=== PATIENT | female | born 2000 | race Caucasian/White ===

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

== ENCOUNTER 2023-09-16 20:34 | Emergency (ER) | payer BC, SELFPAY ==
[2023-09-16 20:35] VITALS: BP 117/81; PULSE 110; RESP 18; TEMP 36.7; O2SAT 97; BMI 24.3
--- NOTE | 2023-09-16 20:46 | ED.VIS.LOWEX ---
HPI History of Present Illness Chief Complaint: Lower Extremity Injury Detail of Chief Complaint: Injury to right thigh yesterday and today Informant: patient Occured/Mechanism Mechanism/Context: Yes injury Comment: Patient was running a obstacle course yesterday when she injured her right thigh. 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 Today she was playing softball. She injured her right thigh again. She is now having difficulty ambulating. She is localizing the pain to the mid anterior right thigh. She denies prior injury. She denies contraindication to NSAIDs. She is not from the area. She states college ends within a week and she is returning to home, [facility]. Patient denies paresthesia, anesthesia or motor weakness. Patient also complains now of right lower back pain. She has no other symptoms or complaints. Prior similar symptoms: No Recent Illness/Hospitalization: No PFSH PFSH Medical History Anxiety Asthma Depression Migraine Home Medications albuterol sulfate 90 mcg/actuation breath activated powder inhaler 2 inh inhalation Q4H PRN SOB 03/13/21 [History Last Taken Unknown] fluticasone 100 mcg-salmeterol 50 mcg/dose blistr powdr for inhalation (Advair Diskus) 1 inh inhalation DAILY 03/13/21 [History Last Taken Unknown] hydroxyzine pamoate 25 mg capsule (Vistaril) 25 mg PO DAILY 03/13/21 [History Last Taken Unknown] rimegepant 75 mg disintegrating tablet (Nurtec ODT) 75 mg PO DAILY PRN MIGRAINES 03/13/21 [History Last Taken Unknown] verapamil 120 mg tablet 120 mg PO DAILY 03/13/21 [History Last Taken Unknown] norethindrone 1 mg-ethinyl estradiol 20 mcg (24)-iron 75 mg (4) tablet (Blisovi 24 Fe) 1 tab PO DAILY 08/21/21 [History Last Taken Unknown] hydrocodone-acetaminophen 5-325mg 5mg-325mg 1 tab PO Q6H PRN PRN Pain 3 days #10 TABLETS 09/16/23 [Rx Last Taken Unknown] Allergy/AdvReac Type Severity Reaction Status Date / Time No Known Allergies Allergy Verified 09/16/23 20:39 Surgical History [place] teeth extracted Social History (Updated 09/16/23 @ 20:[address] Wan Shay MD) household members: family Smoking Status: Never smoker ROS ROS ED Constitutional Constitutional ED: Denies chills, fever(s) or subjective Musculoskeletal Musculoskeletal: Reports other Details: Right thigh pain ; Denies arthralgias, back pain, myalgias or neck pain Neurologic Neurologic: Denies paresthesias or weakness Hematologic/Lymphatic Hematologic/Lymphatic: Denies easy bleeding or easy bruising EXAM Physical Exam Const Vital Signs: 09/16/23 20:35 Temperature 98.0 F Temperature Source Temporal Pulse Rate 110 H Respiratory Rate 18 Blood Pressure 117/81 H Blood Pressure Mean 93 Pulse Ox 97 Oxygen Delivery Method Room Air Positive well nourished and well developed Constitutional Narrative: Patient appears uncomfortable walking from triage to the examination room General Appearance ED: well developed; Negative for NAD HEENT normocephalic and atraumatic Eyes PERRL Eyes Narrative: Extract muscle intact. Resp normal respiratory effort Cardio regular rate and regular rhythm Back/Spine no CVA tenderness Extremity Extremity Narrative: Having the patient extend at the knee results and a bulge mid anterior right thigh. She is able to extend 180 degrees. Palpation of the quadricep tendon and patella tendon elicits no pain and there is no obvious defect. Patient is able to ABduct and adduct against resistance. Patient has pain with initiation of gait. General Extremety ED: Yes weight-bearing difficulty General Extremity: weight-bearing difficulty Neuro oriented x3, CN's II-XII intact bilaterally and moves all extremities Sensorium / Orientation: alert Psych mental status grossly normal Skin no wounds Lesions: no lesions Rashes: no rashes MDM MDM MDM Narrative Medical decision making narrative: Differential diagnosis is hematoma, quadricep tear and muscle strain. Patient has no contraindication NSAIDs. She received dose of NSAIDs in the department. She also was given crutches. Patient was told that she is nonweightbearing and is apply ice. 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 She was informed what this means and the importance of not weightbearing. Imaging is not indicated since this is not a abnormality of the femur but the muscle. Treatment and Re-Evaluation Narrative: NSAIDs, ice crutches Discharge Plan Triage Chief Complaint: Lower Extremity Injury ED Provider: Wan Shay Dx/Rx/DC Orders Clinical Impression: Low back strain, Rupture of right quadriceps muscle, Difficulty walking Instructions: ED Muscle Strain, Extremity Prescriptions: New hydrocodone-acetaminophen [hydrocodone-acetaminophen] 5-325 mg tablet 1 tab PO Q6H PRN PRN (Reason: Pain) 3 Days Qty: 10 0RF No Action hydroxyzine pamoate [Vistaril] 25 mg Capsule 25 mg PO DAILY albuterol sulfate 90 mcg/actuation Aerosol Powdr Breath Activated 2 inh INHALATION Q4H PRN (Reason: SOB) verapamil 120 mg Tablet 120 mg PO DAILY fluticasone propion-salmeterol [Advair Diskus] 100-50 mcg/dose Blister With Device 1 inh INHALATION DAILY Nurtec ODT 75 mg Tablet,Disintegrating 75 mg PO DAILY PRN (Reason: MIGRAINES) norethindrone-e.estradiol-iron [Blisovi 24 Fe] 1 mg-20 mcg (24)/75 mg (4) tablet 1 tab PO DAILY Patient Comments: TAKE 1 TABLET BY MOUTH EVERY DAY Stand Alone Forms: ED Work / School Excuse Primary Care Provider: Care Physician,No Primary Referrals: Care Physician,No Primary [Primary Care Provider] - Doctor,Your [Non-Staff] - 1-2 Weeks Activity Restrictions/Additional Instructions: 1. Apply ice to your right thigh 6-10 times a day 2. You may take either 3 ibuprofen tablets every 8 hours or 2 Aleve tablets every 12 hours for the next 5 to 7 days 3. You were prescribed a more potent pain medicine as needed especially the next several days. 4. No weightbearing until you are pain has decreased significantly. Then as tolerated Disposition Disposition: Home, Self Care
[2023-09-16] MEDS: Ibuprofen 600 MG Tablet PO (21:01)
[2023-09-16 21:02] VITALS: BP 115/74; PULSE 99; RESP 16; TEMP 36.2; O2SAT 99
== END 2023-09-16 21:13 | disposition home or self-care (01) ==
PROVIDERS: Emergency Provider Emergency Medicine; Visit Provider Emergency Medicine
DX: S76.111A Strain of right quadriceps muscle, fascia and tendon, initial encounter (principal); S39.012A Strain of muscle, fascia and tendon of lower back, initial encounter; R26.2 Difficulty in walking, not elsewhere classified; Y93.64 Activity, baseball; J45.909 Unspecified asthma, uncomplicated; X58.XXXA Exposure to other specified factors, initial encounter
CPT/HCPCS: 99284

== ENCOUNTER → 2024-03-11 | Outpatient (CLI) | payer BC, SELFPAY ==
--- OUTSIDE RECORDS SUMMARY | 2024-03-11 11:58 | XMS RPT_ITS | CCD ---
Author Organization [facility] Inform ion Partnership [facility] Care Team Providers Care Fig Caprifier Name Role Phone Unavailable Primary Care Provider Unavailabl e Medications Completed/Discontinued Medications Medication Drug Class(es) Dates Sig (Normalized) Sig (Original) [id number] 200 actuat albuterol 0.09 mg/actuat metered dose inhaler (2 sources) beta2-Adrenergic Agonist take 1-2 puff(s) by inhalation every six hours as needed albuterol HFA (PROVENTIL HFA, VENTOLIN HFA) 90 mcg/actuation inhaler Inhale 1-2 Puffs as instructed every 6 hours as needed. 0 Active Comment on above: Inhale 1-2 Puffs as instructed every 6 hours as needed. 24 hr amphetamine aspartate 5 mg / amphetamine sulfate 5 mg / dextroamphetamine saccharate 5 mg / dextroamphetamine sulfate 5 mg extended release oral capsule (2 sources) Central Nervous System Stimulant Start: 06-27-2023 take 1 capsule by mouth once daily in the morning amphetamine-dextr oamphetamine XR (ADDERALL XR) 20 mg capsule 1 CAP BY MOUTH EVERY MORNING DIRECTED 0 06/27/2023 Active Comment on above: 1 CAP BY MOUTH EVERY MORNING DIRECTED esomeprazole 40 mg delayed release oral capsule (2 sources) Proton Pump Inhibitor Start: 04-22-2023 take 1 capsule by mouth once esomeprazole (NEXIUM) 40 mg capsule Take 1 capsule by mouth every afternoon. 0 04/22/2023 Active Comment on above: Take 1 capsule by mo uth every afternoon. Ethinyl Estradiol / Ferrous fumarate / Norethindrone (2 sources) Estrogen Start: 05-22-2023 take 1 tablet by mouth once daily BLISOVI 24 FE 1 mg-20 mcg (24)/75 mg (4) TAKE 1 TABLET BY MOUTH EVERY DAY *MUST MAKE APPOINTMENT FOR MORE REFILLS 0 05/22/2023 Active Comment on above: TAKE 1 TABLET BY MANUEL TH EVERY DAY *MUST MAKE APPOINTMENT FOR MORE REFILLS famotidine 40 mg oral tablet (2 sources) Histamine-2 Receptor Antagonist Start: 07-08-2023 famotidine (PEPCID) 40 mg tablet hydrOXYzine pamoate 25 mg oral capsule (2 sources) Antihistamine take 1 capsule by mouth every eight hours as needed hydrOXYzine pamoate (VISTARIL) 25 mg capsule Take 25 mg by mouth three times a day as needed. 0 Active Comment on above: Take 25 mg by mouth three times a day as needed. verapamil hydrochloride 120 mg extended release oral tablet (2 sources) Calcium Channel Annetta Start: 05-10-2023 take 1 tablet by mouth once verapamil SR (CALAN SR) 120 mg CR tablet Take 1 tablet by mouth every afternoon. 0 05/10/2023 Active Comment on above: Take 1 tablet by manuel th every afternoon. Problems Problem Classification Problem Date Documented Da te Episodic/Chronic Influenza (1 source) Influenza due to Influenza B virus; Translations: [Influenza due to other identified influenza virus with other respiratory manifestations] 07-11-2023 Episodic Other upper respiratory infections (1 source) Acute upper respiratory infection; Translations: [Acute upper respiratory infection, unspecified] 07-10-2023 Episodic Results Test Name Value Interpretation Reference Range Facil ity CBC W Auto Differential pane l (Bld)on 02-14-2024 Basophils (Bld) [#/Vol] 0.05 10*3/uL Normal <0.11 [facility] Comment on above: Order Comment: Digna herrera Type: BLOOD SPECIMEN Ordering Facility: [facility] Address: ATTN: [place] [address] Performed By: #### 5 7021-8, 45377 #### [facility] CLIA [id number] [address] [place], [place] [address] [address] [place] Basophils/100 WBC (Bld) 0.9 % Normal [facility] Comment on above: Order Comment: Digna herrera Type: BLOOD SPECIMEN Ordering Facility: [facility] Address: ATTN: [place] [address] Performed By: #### 5 7021-8, 4537-7 #### [facility] CLIA [id number] [address] [place] [address] [place] Differential cell count method Nom (Bld) Auto Normal [facility] Comment on above: Order Comment: Speci men Type: BLOOD SPECIMEN Ordering Facility: [facility] Address: ATTN: [place] [address] Performed By: #### 5 7021-8, 4537-7 #### [facility] CLIA [id number] [address] [place] [address] [place] Eosinophils (Bld) [#/Vol] 0.11 10*3/uL Normal <0.46 [facility] Comment on above: Order Comment: Speci men Type: BLOOD SPECIMEN Ordering Facility: [facility] Address: ATTN: [place] [address] Performed By: #### 5 7021-8, 4537-7 #### [facility] CLIA [id number] [address] [place] [address] [place] Eosinophils/100 WBC (Bld) 1.9 % Normal [facility] Comment on above: Order Comment: Speci men Type: BLOOD SPECIMEN Ordering Facility: [facility] Address: ATTN: [address] [place] [id number] Performed By: #### 5 7021-8, 4537-7 #### [facility] CLIA [id number] [address] [place] [address] [place] Erythrocyte distribution width (RBC) [Ratio] 13.2 % Normal 11.5-15.0 [facility] Comment on above: Order Comment: Speci men Type: BLOOD SPECIMEN Ordering Facility: [facility] Address: ATTN: [place] [address] Performed By: #### 5 7021-8, 4537-7 #### [facility] CLIA [id number] [address] [place] [address] [place] Hematocrit (Bld) [Volume fraction] 38.8 % Normal 36.0-46.0 [facility] Comment on above: Order Comment: Speci men Type: BLOOD SPECIMEN Ordering Facility: [facility] Address: ATTN: [place] [address] Performed By: #### 5 7021-8, 7-7 #### [facility] CLIA [id number] [address] [place] [address] [place] Hemoglobin (Bld) [Mass/Vol] 12.5 g/dL Normal 11.5-15.5 [facility] Comment on above: Order Comment: Speci men Type: BLOOD SPECIMEN Ordering Facility: [facility] Address: ATTN: [place] [address] Performed By: #### 5 7021-8, 4536-7 #### [facility] CLIA [id number] [address] [place] [address] [place] Immature granulocytes (Bld) [#/Vol] 10*3/uL Normal <0.10 [facility] Comment on above: Order Comment: Speci men Type: BLOOD SPECIMEN Ordering Facility: [facility] Address: ATTN: [place] [address] Performed By: #### 5 7021-8, 4537-7 #### [facility] CLIA [id number] [address] [place] [address] [place] Immature granulocytes/100 WBC (Bld) 0.2 % Normal [facility] Comment on above: Order Comment: Speci men Type: BLOOD SPECIMEN Ordering Facility: [facility] Address: ATTN: [place] [address] Performed By: #### 5 7021-8, 7-7 #### [facility] CLIA [id number] [address] [place] [address] [place] Lymphocytes (Bld) [#/Vol] 1.80 10*3/uL Normal 1.00-4.00 [facility] Comment on above: Order Comment: Speci men Type: BLOOD SPECIMEN Ordering Facility: [facility] Address: ATTN: [place] [address] Performed By: #### 5 7021-8, 4537-7 #### [facility] CLIA [id number] [address] [place] [address] [place] Lymphocytes/100 WBC (Bld) 31.8 % Normal [facility] Comment on above: Order Comment: Speci men Type: BLOOD SPECIMEN Ordering Facility: [facility] Address: ATTN: [place] [address] Performed By: #### 5 7021-8, 4537-7 #### [facility] CLIA [id number] [address] [place] [address] [place] MCH (RBC) [Entitic mass] 30.8 pg Normal 26.0-34.0 [facility] Comment on above: Order Comment: Speci men Type: BLOOD SPECIMEN Ordering Facility: [facility] Address: ATTN: [place] [address] Performed By: #### 5 7021-8, 4537-7 #### [facility] CLIA [id number] [address] [place] [address] [place] MCHC (RBC) [Mass/Vol] 32.2 g/dL Normal 30.5-36.0 [facility] Comment on above: Order Comment: Speci men Type: BLOOD SPECIMEN Ordering Facility: [facility] Address: ATTN: [place] [address] Performed By: #### 5 7021-8, 4537-7 #### [facility] CLIA [id number] [address] [place] [address] [place] MCV (RBC) [Entitic vol] 95.6 fL Normal 80.0-100.0 [facility] Comment on above: Order Comment: Speci men Type: BLOOD SPECIMEN Ordering Facility: [facility] Address: ATTN: [place] [address] Performed By: #### 5 7021-8, 7-7 #### [facility] CLIA [id number] [address] [place] [address] [place] Monocytes (Bld) [#/Vol] 0.42 10*3/uL Normal <0.87 [facility] Comment on above: Order Comment: Speci men Type: BLOOD SPECIMEN Ordering Facility: [facility] Address: ATTN: [place] [address] Performed By: #### 5 7021-8, 4536-7 #### [facility] CLIA [id number] [address] [place] [address] [place] Monocytes/100 WBC (Bld) 7.4 % Normal [facility] Comment on above: Order Comment: Speci men Type: BLOOD SPECIMEN Ordering Facility: [facility] Address: ATTN: [place] [address] Performed By: #### 5 7021-8, 4536-7 #### [facility] CLIA [id number] [address] [place] [address] [place] Neutrophils (Bld) [#/Vol] 3.27 10*3/uL Normal 1.45-7.50 [facility] Comment on above: Order Comment: Speci men Type: BLOOD SPECIMEN Ordering Facility: [facility] Address: ATTN: [place] [address] Performed By: #### 5 7021-8, 7 #### [facility] CLIA [id number] [address] [place] [address] [place] Neutrophils/100 WBC (Bld) 57.8 % Normal [facility] Comment on above: Order Comment: Speci men Type: BLOOD SPECIMEN Ordering Facility: [facility] Address: ATTN: [place] [address] Performed By: #### 5 7021-8, 7-7 #### [facility] CLIA [id number] [address] [address] [place] Nucleated RBC (Bld) [#/Vol] 10*3/uL Normal <0.01 [facility] Comment on above: Order Comment: Speci men Type: BLOOD SPECIMEN Ordering Facility: [facility] Address: ATTN: [place] [address] Performed By: #### 5 7021-8, 4537-7 #### [facility] CLIA [id number] [address] [place] [address] [place] Nucleated RBC/100 WBC (Bld) [Ratio] 0.0 /100 WBC Normal [facility] Comment on above: Order Comment: Speci men Type: BLOOD SPECIMEN Ordering Facility: [facility] Address: ATTN: [place] [address] Performed By: #### 5 7021-8, 4537-7 #### [facility] CLIA [id number] [address] [place] [address] [place] Platelet mean volume (Bld) [Entitic vol] 14.9 fL High 9.0-12.7 [facility] Comment on above: Order Comment: Speci men Type: BLOOD SPECIMEN Ordering Facility: [facility] Address: ATTN: [place] [address] Performed By: #### 5 7021-8, 4537-7 #### [facility] CLIA [id number] [address] [place] [address] [place] Platelets (Bld) [#/Vol] 252 10*3/uL Normal 150-400 [facility] Comment on above: Order Comment: Speci men Type: BLOOD SPECIMEN Ordering Facility: [facility] Address: ATTN: [place] [address] Performed By: #### 5 7021-8, 4537-7 #### [facility] CLIA [id number] [address] [place], [place] [address] [place] RBC (Bld) [#/Vol] 4.06 10*6/uL Normal 3.90-5.20 [facility] Comment on above: Order Comment: Speci men Type: BLOOD SPECIMEN Ordering Facility: [facility] Address: ATTN: [place] [address] Performed By: #### 5 7021-8, 4537-7 #### [facility] CLIA [id number] [address] [place] [address] [place] WBC (Bld) [#/Vol] 5.66 10*3/uL Normal 3.70-11.00 [facility] Comment on above: Order Comment: Speci men Type: BLOOD SPECIMEN Ordering Facility: [facility] Address: ATTN: [place] [address] Performed By: #### 5 7021-8, 4537-7 #### [facility] CLIA [id number] [address] [place] [address] [place] CRP SerPl-mCncon 02-14-2024 CRP [Mass/Vol] 0.3 mg/dL Normal <0.9 [facility] Comment on above: Order Comment: Speci men Type: BLOOD SPECIMEN Ordering Facility: [facility] Address: ATTN: [place] [address] Performed By: #### 1 988-5, 46580-0, 3016-3 #### [facility] CLIA [id number] [address] [place], [place] [address] [place] Comprehensive metabolic 2000 panelon 02-14-2024 Albumin [Mass/Vol] 4.3 g/dL Normal 3.9-4.9 [facility] Comment on above: Order Comment: Speci men Type: BLOOD SPECIMEN Ordering Facility: [facility] Address: ATTN: [place] [address] Performed By: #### 1 988-5, 20718-5, 3016-3 #### [facility] CLIA [id number] [address] [address] [place] ALP [Catalytic activity/Vol] 49 U/L Normal 34-123 [facility] Comment on above: Order Comment: Speci men Type: BLOOD SPECIMEN Ordering Facility: [facility] Address: ATTN: [place] [address] Performed By: #### 1 988-5, 37587-8, 6-3 #### [facility] CLIA [id number] [address] [place] [id number] [place] ALT [Catalytic activity/Vol] 16 U/L Normal 7-38 [facility] Comment on above: Order Comment: Speci men Type: BLOOD SPECIMEN Ordering Facility: [facility] Address: ATTN: [place] [address] Performed By: #### 1 988-5, 07127-0, 6-3 #### [facility] CLIA [id number] [address] [place] [address] [place] Anion gap [Moles/Vol] 12 mmol/L Normal 8-15 [facility] Comment on above: Order Comment: Speci men Type: BLOOD SPECIMEN Ordering Facility: [facility] Address: ATTN: [place] [address] Performed By: #### 1 988-5, 99216-2, 3015-3 #### [facility] CLIA [id number] [address] [place] [address] [place] AST [Catalytic activity/Vol] 21 U/L Normal 13-35 [facility] Comment on above: Order Comment: Speci men Type: BLOOD SPECIMEN Ordering Facility: [facility] Address: ATTN: [place] [address] Performed By: #### 1 988-5, 37689-2, 3016-3 #### [facility] CLIA [id number] [address] [id number] [address] [place] Bilirubin [Mass/Vol] 0.4 mg/dL Normal 0.2-1.3 [facility] Comment on above: Order Comment: Speci men Type: BLOOD SPECIMEN Ordering Facility: [facility] Address: ATTN: [place] [address] Performed By: #### 1 988-5, 36393-7, 3016-3 #### [facility] CLIA [id number] [address] [place] [address] [place] Calcium [Mass/Vol] 9.4 mg/dL Normal 8.5-10.2 [facility] Comment on above: Order Comment: Speci men Type: BLOOD SPECIMEN Ordering Facility: [facility] Address: ATTN: [place] [address] Performed By: #### 1 988-5, 13115-8, 3015-3 #### [facility] CLIA [id number] [address] [place], [place] [address] [place] Chloride [Moles/Vol] 103 mmol/L Normal 98-107 [facility] Comment on above: Order Comment: Speci men Type: BLOOD SPECIMEN Ordering Facility: [facility] Address: ATTN: [place] [address] Performed By: #### 1 988-5, 67055-1, 3015-3 #### [facility] CLIA [id number] [address] [place], [place] [address] [place] CO2 [Moles/Vol] 25 mmol/L Normal 22-30 [facility] Comment on above: Order Comment: Speci men Type: BLOOD SPECIMEN Ordering Facility: [facility] Address: ATTN: [place] [address] Performed By: #### 1 988-5, 72721-8, 6-3 #### [facility] CLIA [id number] [address] [address] [place] Creatinine [Mass/Vol] 0.70 mg/dL Normal 0.58-0.96 [facility] Comment on above: Order Comment: Digna herrera Type: BLOOD SPECIMEN Ordering Facility: [facility] Address: ATTN: [place] [address] Performed By: #### 1 988-5, 05238-0, 6-3 #### [facility] CLIA [id number] [address] [place], [place] [address] [facility] Creatinine and Glomerular filtration rate.predicted panel (S/P/Bld) 126 mL/min/1.73m??? Normal >=60 [facility] Comment on above: Order Comment: Digna herrera Type: BLOOD SPECIMEN Ordering Facility: [facility] Address: ATTN: [place] [address] Result Comment: Shital mated Glomerular Filtration Rate (eGFR) is calculated using the 2020 CKD-EPI creatinine equation. This equation utilizes serum creatinine, sex, and age as parameters. The creatinine assay has traceable calibration to isotope dilution-mass spectrometry. Refer to KDIGO guidelines for clinical interpretation. In patients with unstable renal function, e.g. those with acute kidney injury, the eGFR may not accurately reflect actual GFR. Performed By: #### 1 988-5, 60208-2, 6-3 #### [facility] CLIA [id number] [facility] [address] [address] [place] Glucose [Mass/Vol] 88 mg/dL Normal 74-99 [facility] Comment on above: Order Comment: Digna herrera Type: BLOOD SPECIMEN Ordering Facility: [facility] Address: ATTN: [place] [address] Result Comment: The [place] Diabetes Association (ADA) provides guidance for cutoff values for fasting glucose and random glucose. The ADA defines fasting as no caloric intake for at least 8 hours. Fasting plasma glucose results between 100 to 125 mg/dL indicate increased risk for diabetes (prediabetes). Fasting plasma glucose results greater than or equal to 126 mg/dL meet the criteria for diagnosis of diabetes. In the absence of unequivocal hyperglycemia, results should be confirmed by repeat testing. In a patient with classic symptoms of hyperglycemia or hyperglycemic crisis, random plasma glucose results greater than or equal to 200 mg/dL meet the criteria for diagnosis of diabetes. Reference: Standards of Medical Care in Diabetes 2016, [place] [employer] Association. Diabetes Care. 2016.39(Suppl 1). Performed By: #### 1 988-5, 90839-0, 3016-3 #### [facility] CLIA [id number] [address] [address] [place] Potassium [Moles/Vol] 4.3 mmol/L Normal 3.7-5.1 [facility] Comment on above: Order Comment: Digna herrera Type: BLOOD SPECIMEN Ordering Facility: [facility] Address: ATTN: [place] [address] Performed By: #### 1 988-5, 20977-0, 6-3 #### [facility] CLIA [id number] [address] [address] [place] Protein [Mass/Vol] 7.4 g/dL Normal 6.3-8.0 [facility] Comment on above: Order Comment: Digna herrera Type: BLOOD SPECIMEN Ordering Facility: [facility] Address: ATTN: [place] [address] Performed By: #### 1 988-5, 27391-1, 6-3 #### [facility] CLIA [id number] [address] [address] [place] Sodium [Moles/Vol] 140 mmol/L Normal 136-144 [facility] Comment on above: Order Comment: Digna herrera Type: BLOOD SPECIMEN Ordering Facility: [facility] Address: ATTN: [place] [address] Performed By: #### 1 988-5, 79782-2, 6-3 #### [facility] CLIA [id number] [address] [address] [place] Urea nitrogen [Mass/Vol] 12 mg/dL Normal 7-21 [facility] Comment on above: Order Comment: Digna herrera Type: BLOOD SPECIMEN Ordering Facility: [facility] Address: ATTN: [place] [address] Performed By: #### 1 988-5, 94572-3, 3016-3 #### [facility] CLIA [id number] [address] [place] [id number] [place] ESR Westergren method (Bld) [Velocity]on 02-14-2024 ESR (Bld) [Velocity] 8 mm/h Normal 0-20 [facility] Comment on above: Order Comment: Digna herrera Type: BLOOD SPECIMEN Ordering Facility: [facility] Address: ATTN: [place] [address] Performed By: #### 5 7021-8, 4537-7 #### [facility] CLIA [id number] [address] [place] [address] [place] TSH SerPl-aCncon 02-14-2024 TSH Qn 1.410 m[IU]/L Normal 0.270-4.200 [facility] Comment on above: Order Comment: Digna herrera Type: BLOOD SPECIMEN Ordering Facility: [facility] Address: ATTN: [place] [address] Result Comment: If t he patient is , TSH reference range varies by gestational period: First Trimester (weeks 9-12): 0.180-2.990 mIU/L Second Trimester: 0.110-3.980 mIU/L Third Trimester: 0.480-4.710 mIU/L David Raines et al. A Practical Approach for the Verifications and Determination of Site- and Trimester-Specific Reference Intervals for Thyroid Function tests in . Thyroid, 2019:29:3:412-420. Soto Wilkins, et al. 2017 Guidelines of the [place] Thyroid Association for the Diagnosis and Management of Thyroid Disease during and the . Thyroid, 2017:27:3:315-389. Performed By: #### 1 988-5, 45859-5, 3016-3 #### [facility] CLIA [id number] [address] [place] [id number] [place] Gerardo 07-11-2023 JOSH Telephone ([facility]WSTR) NEEMA PETERSON ([id number]) 4 F Date Time Provider Department 07/11/23 VIKY KERR [facility] During your visit today, we recorded the following information about you: Viky Kerr APRN.ADITYA 07/11/2023 9:11 AM Signed I attempted to reach patient to advise of positive influenza test. No answer. Left message. Supportive care is indicated; rest, fluids, tylenol and/or ibuprofen as needed. Should stay home until fever free for 24 hours. Viky Kerr APRN.Toby Henson 07/11/2023 9:38 AM Signed Patient given results and verbalized understanding of instructions given. Toby Baltazar Allergies As of Date: 07/11/2023 (No Known Allergies) Date Reviewed: 07/10/2023 Reviewed by: Christine Fletcher LPN - Fully Assessed Reason for Visit: Results [95] Primary Visit Diagnosis:Influenza B [J10.1] Prescriptions as of 07/11/2023 - albuterol HFA (PROVENTIL HFA, VENTOLIN HFA) 90 mcg/actuation inhaler Inhale 1-2 Puffs as instructed every 6 hours as needed. - amphetamine-dextroam phetamine XR (ADDERALL XR) 20 mg capsule 1 CAP BY MOUTH EVERY MORNING DIRECTED - esomeprazole (NEXIUM) 40 mg capsule Take 1 capsule by mouth every afternoon. - BLISOVI 24 FE 1 mg-20 mcg (24)/75 mg (4) TAKE 1 TABLET BY MOUTH EVERY DAY *MUST MAKE APPOINTMENT FOR MORE REFILLS - verapamil SR (CALAN SR) 120 mg CR tablet Take 1 tablet by mouth every afternoon. - hydrOXYzine pamoate (VISTARIL) 25 mg capsule Take 25 mg by mouth three times a day as needed. - famotidine (PEPCID) 40 mg tablet Problem List As Of Date: 07/11/2023 (None) Encounter Status:Closed by TOBY BALTAZAR on 07/11/23 [facility] CNOVon 07-10-2023 CNOV Office Visit ([facility]WSTR) NEEMA PETERSON ([id number]) 4 F Date Time Provider Department 07/10/23 2:30 PM SENA WHITLOCK [facility] During your visit today, we recorded the following information about you: Temperature Pulse Respiration Blood pressure 100.1 degrees 119/minute 18/minute 140/82 Weight 68 kg Sena Whitlock APRN.SAT TUTOR 07/10/2023 2:57 PM Signed CC: Patient presents with: Cough: Cough, congestion, fever and vomiting x 1 day Patient reports cough and congestion that started Sunday. Symptoms have gotten worse with patient vomiting twice today. HPI: Neema Peterson is a 23 year old female who presents to the office with complaint of head congestion, cough, nonproductive, sore throat, sinus symptoms, and fever for 4 days. Symptoms are worsening Associated symptoms includes nasal congestion, body aches, fever, cough, and diarrhea. Denies rash, dyspnea, and diarrhea. Treatments tried include OTC cold medicine with minor relief of symptoms. Sick contacts: yes. History of asthma, frequent episodes of bronchitis, chronic bronchitis, bronchiectasis or COPD: No Smoker: No Seasonal/environment al allergies: No The ROS is otherwise negative. The patient's pmh, medications, allergies, and past visits are reviewed. PHYSICAL EXAM: BP 140/82 Pulse 119 Temp 37.8 ?C (100.1 ?F) (Tympanic) Resp 18 Wt 68 kg (150 lb) SpO2 99% General appearance: alert, cooperative, pleasant, in no acute distress Head: Normocephalic Eyes: PERRLA, EOM's intact, conjunctiva pink and moist, no icterus, sclera white, non-injected Ears: Right ear: External ear/canal- Normal, TM - clear with good landmarks. Left ear: External ear/canal- Normal, TM - clear with good landmarks Nose: clear. Oropharynx:moist without lesions, No erythema, exudates or tonsillar hypertrophy. Neck:supple and no adenopathy Heart: Negative. RRR without obvious murmur, gallop, or rubs. No ectopy. Lungs: clear to auscultation, without rales or wheeze, good air exchange History reviewed. No pertinent past medical history. No past surgical history on file. ALLERGIES Patient has no known allergies. MEDICATIONS albuterol HFA (PROVENTIL HFA, VENTOLIN HFA) 90 mcg/actuation inhaler Inhale 1-2 Puffs as instructed every 6 hours as needed. amphetamine-dextroam phetamine XR (ADDERALL XR) 20 mg capsule 1 CAP BY MOUTH EVERY MORNING DIRECTED esomeprazole (NEXIUM) 40 mg capsule Take 1 capsule by mouth every afternoon. BLISOVI 24 FE 1 mg-20 mcg (24)/75 mg (4) TAKE 1 TABLET BY MOUTH EVERY DAY *MUST MAKE APPOINTMENT FOR MORE REFILLS verapamil SR (CALAN SR) 120 mg CR tablet Take 1 tablet by mouth every afternoon. hydrOXYzine pamoate (VISTARIL) 25 mg capsule Take 25 mg by mouth three times a day as needed. famotidine (PEPCID) 40 mg tablet No family history on file. Social History Tobacco Use Smoking status: Never Smokeless tobacco: Never DATA REVIEWED: No new labs ASSESSMENT/PLAN: 1. URI, acute - ICD9: 465.9, ICD10: J06.9 - Discussed viral etiology and rationale for treatment. - Symptomatic treatment with prn analgesia - Supportive care with fluids and rest - Patient declined Strep testing - COVID AND INFLUENZA A/B AND RSV NAAT, ROUTINE Potential red flag symptoms discussed with the patient. Reviewed appropriate action plan to take if red flag symptoms occur. Patient agreeable to treatment plan. Toby Zapata Supervising provider was present and guided the care of the patient for the entire session on this date. All documentation was reviewed and agreed upon. Sena Whitlock APRN.SAT TUTOR Allergies As of Date: 07/10/2023 (No Known Allergies) Date Reviewed: 07/10/2023 Reviewed by: Christine Fletcher LPN - Fully Assessed Reason for Visit: Cough [28] Cmt: Cough, congestion, fever and vomiting x 1 day Primary Visit Diagnosis:URI, acute [J06.9] Order(s):COVID AND INFLUENZA A/B AND RSV NAAT, ROUTINE [[id number]] Order #: [id number]. #:[id number] Prescriptions as of 07/10/2023 - albuterol HFA (PROVENTIL HFA, VENTOLIN HFA) 90 mcg/actuation inhaler Inhale 1-2 Puffs as instructed every 6 hours as needed. - amphetamine-dextroam phetamine XR (ADDERALL XR) 20 mg capsule 1 CAP BY MOUTH EVERY MORNING DIRECTED - esomeprazole (NEXIUM) 40 mg capsule Take 1 capsule by mouth every afternoon. - BLISOVI 24 FE 1 mg-20 mcg (24)/75 mg (4) TAKE 1 TABLET BY MOUTH EVERY DAY *MUST MAKE APPOINTMENT FOR MORE REFILLS - verapamil SR (CALAN SR) 120 mg CR tablet Take 1 tablet by mouth every afternoon. - hydrOXYzine pamoate (VISTARIL) 25 mg capsule Take 25 mg by mouth three times a day as needed. - famotidine (PEPCID) 40 mg tablet Problem List As Of Date: 07/10/2023 (None) Encounter Status:Closed by SENA WHITLOCK on 07/10/23 Normal [facility] COVID AND INFLUENZA A/B AND RSV NAAT, ROUTINEon 07-10-2023 SARS-CoV-2 (COVID-19) RNA SEAN+probe Ql (Unsp spec) COVID 19 RESULT: Not detected The method used is RT-PCR or an equivalent NAAT method. Reference Range (the expected result in uninfected individuals): Not detected INFLUENZA A PCR: Not detected INFLUENZA B PCR: Detected RSV PCR: Not detected Abnormal [facility] Comment on above: Performed By: #### C VFLRS #### [facility] CLIA [id number] [address] [place] [address] [place] Vital Signs Date Time Vital Sign Value Performing Clinician Facility 07-10-2023 14:36-0500 Body temperature 100.09 [degF] Sena Whitlock APRN.SAT TUTOR Work Phone: [facility] 07-10-2023 14:36-0500 Body weight 68.04 kg Sena Whitlock APRN.SAT TUTOR Work Phone: [facility] 07-10-2023 14:36-0500 Diastolic blood pressure 82 mm[Hg] Sena Whitlock APRN.SAT TUTOR Work Phone: [facility] 07-10-2023 14:36-0500 Heart rate 119 /min Sena Whitlock APRN.SAT TUTOR Work Phone: [facility] 07-10-2023 14:36-0500 Respiratory rate 18 /min Sena Whitlock APRN.SAT TUTOR Work Phone: [facility] 07-10-2023 14:36-0500 SaO2% (BldA) [Mass fraction] 99 % Sena Whitlock APRN.SAT TUTOR Work Phone: [facility] 07-10-2023 14:36-0500 Systolic blood pressure 140 mm[Hg] Sena Whitlock APRN.SAT TUTOR Work Phone: [facility] Encounters Encounter Date Encounter Type Care Provider Facility Start: 07-11-2023 Telephone encounter Viky Leon Judith PATRICIOSAT TUTOR Work Phone: [email or web address] Comment on above: Results Start: 07-10-2023 End: 07-10-2023 ambulatory Facility:[facility] Start: 07-10-2023 End: 07-10-2023 Patient encounter procedure Sena Whitlock APRN.SAT TUTOR Work Phone: [email or web address] Comment on above: URI, acute (Primary Dx) Plan of Treatment Date Care Activity Detail Author Start: 2023 Screening for malignant neoplasm of cervix Pap Testing [facility] Start: 05-21-2023 Depression Assessment Depression Assessment [facility] Start: 01-19-2023 Influenza vaccination Influenza Vaccine (#1) [facility] Start: 2021 Urine microalbumin profile DTaP,Tdap,Td Vaccine (1 - Tdap) [facility] Start: 2020 GC (Gonorrhea) Screening (18-24) GC (Gonorrhea) Screening (18-24) [facility] Start: 2020 Hepatitis C screening Hepatitis C Screening [facility] Start: 2020 HIV screening HIV Screening [facility] Start: 2020 Screening for Chlamydia trachomatis Chlamydia Screening (18) [facility] Start: 2018 Meningococcal B Vaccine: Consider Based On Risk (1 of 2 - Patient Seeks Protection) Meningococcal B Vaccine: Consider Based On Risk (1 of 2 - Patient Seeks Protection) [facility] Start: 2016 Peds To Adult Transition Annual Assessment Peds To Adult Transition Annual Assessment [facility] Start: 2014 Peds To Adult Transition Initial Discussion Peds To Adult Transition Initial Discussion [facility] Start: 2011 HPV Vaccine (1 - 2-dose series) HPV Vaccine (1 - 2-dose series) [facility] Start: 2002 Covid-19 Vaccine (#1) Covid-19 Vaccine (#1) [facility] Start: 2002 Hepatitis B Vaccine (1 of 3 - 3-dose series) Hepatitis B Vaccine (1 of 3 - 3-dose series) [facility] COVID & INFLUENZA A/ B & RSV NAAT, ROUTINE COVID & INFLUENZA A/B & RSV NAAT, ROUTINE Microbiology Routine URI, acute 07/10/2023 3:02 PM EST [facility] Work Phone: Payers Date Payer Category Payer Unknown [employer] PPO OOS [id number] 2016-Present [phone] [address] [place] [address] PPO [id number] 2016 Unknown [id number] Social History Date Type Detail Facility [facility]: [facility] Start: 07-10-2023 Tobacco use and exposure Smoke less tobacco non-user [facility] Start: 07-10-2023 History of Social function [facility] Start: 07-10-2023 Tobacco use panel [facility] Start: 2002 Sex Assigned At Not on file [facility] Note 07-11-2023 Telephone Encounter - Toby Baltazar - 07/11/2023 9:38 AM ESTTelephone Encounter - Viky Kerr APRN.CNP - 07/11/2023 9:08 AM EST Note Date & Type Note Facility 07-11-2023 Miscellaneous Notes Formattin g of this note might be different from the original. Patient given results and verbalized understanding of instructions given. Toby Baltazar I attempted to reach patient to advise of positive influenza test. No answer. Left message. Supportive care is indicated; rest, fluids, tylenol and/or ibuprofen as needed. Should stay home until fever free for 24 hours. Viky Kerr APRN.ADITYA documented in this encounter [facility] Progress note 07-10-2023 Note Date & Type Note Facility 07-10-2023 Note HNO ID: [id number] Author: SENA WHITLOCK APRN.ADITYA Service: ? Author Type: Nurse Practitioner Type: Progress Notes Filed: 07/10/2023 14:57 Note Text: CC: Patient presents with: Cough: Cough, congestion, fever and vomiting x 1 day Patient reports cough and congestion that started Sunday. Symptoms have gotten worse with patient vomiting twice today. HPI: Neema Peterson is a 23 year old female who presents to the office with complaint of head congestion, cough, nonproductive, sore throat, sinus symptoms, and fever for 4 days. Symptoms are worsening Associated symptoms includes nasal congestion, body aches, fever, cough, and diarrhea. Denies rash, dyspnea, and diarrhea. Treatments tried include OTC cold medicine with minor relief of symptoms. Sick contacts: yes. History of asthma, frequent episodes of bronchitis, chronic bronchitis, bronchiectasis or COPD: No Smoker: No Seasonal/environmental allergies: No The ROS is otherwise negative. The patient's pmh, medications, allergies, and past visits are reviewed. PHYSICAL EXAM: BP 140/82 Pulse 119 Temp 37.8 ?C (100.1 ?F) (Tympanic) Resp 18 Wt 68 kg (150 lb) SpO2 99% General appearance: alert, cooperative, pleasant, in no acute distress Head: Normocephalic Eyes: PERRLA, EOM's intact, conjunctiva pink and moist, no icterus, sclera white, non-injected Ears: Right ear: External ear/canal- Normal, TM - clear with good landmarks. Left ear: External ear/canal- Normal, TM - clear with good landmarks Nose: clear. Oropharynx:moist without lesions, No erythema, exudates or tonsillar hypertrophy. Neck:supple and no adenopathy Heart: Negative. RRR without obvious murmur, gallop, or rubs. No ectopy. Lungs: clear to auscultation, without rales or wheeze, good air exchange History reviewed. No pertinent past medical history. No past surgical history on file. ALLERGIES Patient has no known allergies. MEDICATIONS albuterol HFA (PROVENTIL HFA, VENTOLIN HFA) 90 mcg/actuation inhaler Inhale 1-2 Puffs as instructed every 6 hours as needed. amphetamine-dextroamphetamine XR (ADDERALL XR) 20 mg capsule 1 CAP BY MOUTH EVERY MORNING DIRECTED esomeprazole (NEXIUM) 40 mg capsule Take 1 capsule by mouth every afternoon. BLISOVI 24 FE 1 mg-20 mcg (24)/75 mg (4) TAKE 1 TABLET BY MOUTH EVERY DAY *MUST MAKE APPOINTMENT FOR MORE REFILLS verapamil SR (CALAN SR) 120 mg CR tablet Take 1 tablet by mouth every afternoon. hydrOXYzine pamoate (VISTARIL) 25 mg capsule Take 25 mg by mouth three times a day as needed. famotidine (PEPCID) 40 mg tablet No family history on file. Social History Tobacco Use Smoking status: Never Smokeless tobacco: Never DATA REVIEWED: No new labs ASSESSMENT/PLAN: 1. URI, acute - ICD9: 465.9, ICD10: J06.9 - Discussed viral etiology and rationale for treatment. - Symptomatic treatment with prn analgesia - Supportive care with fluids and rest - Patient declined Strep testing - COVID AND INFLUENZA A/B AND RSV NAAT, ROUTINE Potential red flag symptoms discussed with the patient. Reviewed appropriate action plan to take if red flag symptoms occur. Patient agreeable to treatment plan. Toby Zapata Supervising provider was present and guided the care of the patient for the entire session on this date. All documentation was reviewed and agreed upon. Sena Whitlock APRN.ADITYA [facility] History of Present illness Narrative 07-10-2023 Sena Whitlock APRN.ADITYA - 07/10/2023 2:50 PM EST Note Date & Type Note Facility 07-10-2023 History of Presen t illness Narrative CC: Patient presents with: Cough: Cough, congestion, fever and vomiting x 1 day Patient reports cough and congestion that started Sunday. Symptoms have gotten worse with patient vomiting twice today. HPI: Neema Peterson is a 23 year old female who presents to the office with complaint of head congestion, cough, nonproductive, sore throat, sinus symptoms, and fever for 4 days. Symptoms are worsening Associated symptoms includes nasal congestion, body aches, fever, cough, and diarrhea. Denies rash, dyspnea, and diarrhea. Treatments tried include OTC cold medicine with minor relief of symptoms. Sick contacts: yes. History of asthma, frequent episodes of bronchitis, chronic bronchitis, bronchiectasis or COPD: No Smoker: No Seasonal/environmental allergies: No The ROS is otherwise negative. The patient's pmh, medications, allergies, and past visits are reviewed. PHYSICAL EXAM: BP 140/82 Pulse 119 Temp 37.8 C (100.1 F) (Tympanic) Resp 18 Wt 68 kg (150 lb) SpO2 99% General appearance: alert, cooperative, pleasant, in no acute distress Head: Normocephalic Eyes: PERRLA, EOM's intact, conjunctiva pink and moist, no icterus, sclera white, non-injected Ears: Right ear: External ear/canal- Normal, TM - clear with good landmarks. Left ear: External ear/canal- Normal, TM - clear with good landmarks Nose: clear. Oropharynx:moist without lesions, No erythema, exudates or tonsillar hypertrophy. Neck:supple and no adenopathy Heart: Negative. RRR without obvious murmur, gallop, or rubs. No ectopy. Lungs: clear to auscultation, without rales or wheeze, good air exchange History reviewed. No pertinent past medical history. No past surgical history on file. ALLERGIES Patient has no known allergies. MEDICATIONS albuterol HFA (PROVENTIL HFA, VENTOLIN HFA) 90 mcg/actuation inhaler Inhale 1-2 Puffs as instructed every 6 hours as needed. amphetamine-dextroamphetamine XR (ADDERALL XR) 20 mg capsule 1 CAP BY MOUTH EVERY MORNING DIRECTED esomeprazole (NEXIUM) 40 mg capsule Take 1 capsule by mouth every afternoon. BLISOVI 24 FE 1 mg-20 mcg (24)/75 mg (4) TAKE 1 TABLET BY MOUTH EVERY DAY *MUST MAKE APPOINTMENT FOR MORE REFILLS verapamil SR (CALAN SR) 120 mg CR tablet Take 1 tablet by mouth every afternoon. hydrOXYzine pamoate (VISTARIL) 25 mg capsule Take 25 mg by mouth three times a day as needed. famotidine (PEPCID) 40 mg tablet No family history on file. Social History Tobacco Use Smoking status: Never Smokeless tobacco: Never DATA REVIEWED: No new labs ASSESSMENT/PLAN: 1. URI, acute - ICD9: 465.9, ICD10: J06.9 - Discussed viral etiology and rationale for treatment. - Symptomatic treatment with prn analgesia - Supportive care with fluids and rest - Patient declined Strep testing - COVID & INFLUENZA A/B & RSV NAAT, ROUTINE Potential red flag symptoms discussed with the patient. Reviewed appropriate action plan to take if red flag symptoms occur. Patient agreeable to treatment plan. Toby Zapata Supervising provider was present and guided the care of the patient for the entire session on this date. All documentation was reviewed and agreed upon. Sena Whitlock APRN.ADITYA documented in this encounter [facility] Evaluation note Note Date & Type Note Facility Evaluation note Diagnosis URI, acute- Primary Acute upper respiratory infections of unspecified site documented in this encounter [facility] Evaluation note Note Date & Type Note Facility Evaluation note Diagnosis Influenza B- Primary Influenza with other respiratory manifestations documented in this encounter [facility] Health Concerns Infection Onset Date Last Indicated Resolved Time Influenza 07/10/2023 07/10/2023 Summary Purpose Family History No Family History Records Found Advance Directives No Advanced Directives Records Found Additional Source Comments Source Comments (unrecognize d section and content) In the event this informatio n is protected by the Federal Confidentiality of Alcohol and Drug Abuse Patient Records regulations: The Federal rules restrict any use of the information to criminally investigate or prosecute any alcohol or drug abuse patient.[facility] the event this information is protected by the Federal Confidentiality of Alcohol and Drug Abuse Patient Records regulations: The Federal rules restrict any use of the information to criminally investigate or prosecute any alcohol or drug abuse patient.[facility] Reason for Visit (unrecogniz ed section and content) Reason Comments Cough Cough, congestion, f ever and vomiting x 1 day Reason Comments Results INFORMATION SOURCE (unrecogn ized section and content) DATE CREATED AUTHOR 02/16/2024 [facility] FOR RECORDS PERTAINING TO PATIENTS WHO ARE OR HAVE BEEN ENROLLED IN A CHEMICAL DEPENDENCY/SUBSTANCEABUSE PROGRAM, SOME INFORMATION MAY BE OMITTED. This clinical summary was aggregated from multiple sources. Caution should be exercised in using it in the provision of clinical care. This summary normalizes information from multiple sources, and as a consequence, information in this document may materially change the coding, format and clinical context of patient data. In addition, data may be omitted in some cases. CLINICAL DECISIONS SHOULD BE BASED ON THE PRIMARY CLINICAL RECORDS. [facility]. provides no warranty or guarantee of the accuracy or completeness of information in this document.
[2024-03-11 14:03] LABS: Vitamin B12 455 pg/mL (211-911); Vitamin D,25 Hydroxy 19.6 ng/mL
[2024-03-16 17:07] LABS: Beef <0.10 kU/L (Class 0); Chocolate <0.10 kU/L (Class 0); Codfish <0.10 kU/L (Class 0); Corn <0.10 kU/L (Class 0); Egg, Whole <0.10 kU/L (Class 0); Milk (Cow) <0.10 kU/L (Class 0); Mussels <0.10 kU/L (Class 0); Peanut <0.10 kU/L (Class 0); Pork <0.10 kU/L (Class 0); Salmon <0.10 kU/L (Class 0); Shrimp <0.10 kU/L (Class 0); Soybean <0.10 kU/L (Class 0); Tuna <0.10 kU/L (Class 0); Wheat <0.10 kU/L (Class 0)
== END | disposition home or self-care (01) ==
LOC: LAB 11:39
DX: E46 Unspecified protein-calorie malnutrition (principal)
CPT/HCPCS: 36415; 82306; 82607; 86003; 86005

== ENCOUNTER → 2024-03-13 | Outpatient (CLI) | payer BC, SELFPAY ==
[2024-03-16 01:07] LABS: Calprotectin, Stool 264 ug/g (0-120)
[2024-03-17 10:08] LABS: Pancreatic Elastase, Fecal > 800 (>200)
== END | disposition home or self-care (01) ==
LOC: LABSPEC 08:56
DX: E46 Unspecified protein-calorie malnutrition (principal); K58.9 Irritable bowel syndrome, unspecified
CPT/HCPCS: 82653; 83630; 83993